=== PATIENT | female | born 2005 | race African-American/Black ===

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

== ENCOUNTER 2024-01-18 05:27 | Emergency (ER) | payer MEDICAID, OTHER ==
[~2024-01-18] VITALS: Ht 165.1 cm; Wt 97.0 kg
[~2024-01-18 05:27] MED LIST: CARB15DR63 EACH EAR; IBUP-2028 MT; OFLO5DRO4 LEFT EAR; TOPUD PO
[2024-01-18 05:50] VITALS: TEMP 97.8; O2SAT 100
[2024-01-18 06:15] LABS: HEMOGLOBIN. 9.6 g/dL (12.0-16.0); MEAN CORPUSCULAR HEMOGLOBIN 18.3 pg (28.0-32.0); MEAN CORPUSCULAR HGB CONC 29.1 g/dL (31.0-37.0); MEAN PLATELET VOLUME 8.1 fl (7.4-10.4); PLATELET 496 x1000/uL (130-400); RED BLOOD CELL COUNT 5.24 mill/uL (4.2-5.4); RED CELL DISTRIBUTION WIDTH 18.9 % (11.6-14.6)
[2024-01-18 06:27] LABS: DIFFERENTIAL COMMENT 1
[2024-01-18 06:42] LABS: ALANINE AMINOTRANSFERASE 9 IU/L (10-49); ALBUMIN 4.7 g/dL (3.2-4.8); ASPARTATE AMINOTRANSFERASE 16 IU/L (<34); BILIRUBIN TOTAL 0.4 mg/dL (0.1-1.0); CARBON DIOXIDE 23 mEq/L (21-32); CHLORIDE 106 mEq/L (98-107); CREATININE 0.8 mg/dL (0.6-1.0); GLUCOSE 114 mg/dL (70-105); POTASSIUM 3.8 mEq/L (3.5-5.1); PROTEIN TOTAL 8.8 g/dL (6.0-8.3); SODIUM 136 mEq/L (136-145); UREA NITROGEN BLOOD 12 mg/dL (9-23)
[2024-01-18 07:03] LABS: CLARITY URINE TURBID (CLEAR); COLOR URINE YELLOW (YELLOW); GLUCOSE URINE NEGATIVE (NEGATIVE); KETONES URINE NEGATIVE (NEGATIVE); LEUKOCYTE ESTERASE URINE 2+ (NEGATIVE); NITRITE URINE NEGATIVE (NEGATIVE); OCCULT BLOOD URINE NEGATIVE (NEGATIVE); PH URINE 8.5 (4.5-8.0); PROTEIN URINE 1+ (NEGATIVE); SPECIFIC GRAVITY URINE 1.023 (1.005-1.030)
[2024-01-18] MEDS ORDERED: MORPHINE SULFATE 4 MG/ML INJ (FOR IV/IM USE) IV STA (07:49)
[2024-01-18] MEDS ORDERED: FAMOTIDINE 20MG/2ML VIAL IV STA (07:49)
[2024-01-18] MEDS ORDERED: ONDANSETRON HCL 4MG/2ML INJ IV STA (07:49)
[2024-01-18] MEDS ORDERED: KETOROLAC 30MG/ML VIAL IV STA (07:49)
[2024-01-18 07:58] LABS: BACTERIA URINE 3+; RBC URINE NONE SEEN /hpf (0-2); SQUAMOUS EPITHELIAL CELL URINE 1+ /lpf (RARE/1+); WBC URINE 15-25 /hpf (0-2)
[2024-01-18] MEDS: SODIUM CHLORIDE 0.9% 1,000 ML IV ONE (08:00)
[2024-01-18 08:04] LABS: HCG SCREEN NEGATIVE
[2024-01-18] MEDS ORDERED: CEFTRIAXONE 1GM/50ML 50 ML IV ONE (08:30)
[2024-01-18] MEDS ORDERED: TOPUD PO (09:28)
[2024-01-18] MEDS ORDERED: NITR100C PO (09:28)
[2024-01-18] MEDS: CEFTRIAXONE 1GM/50ML 50 ML IV NR (09:46)
[2024-01-18] MEDS: ONDANSETRON HCL 4MG/2ML INJ IV NR (09:46)
[2024-01-18] MEDS: FAMOTIDINE 20MG/2ML VIAL IV NR (09:46)
[2024-01-18] MEDS: MORPHINE SULFATE 4 MG/ML INJ (FOR IV/IM USE) IV NR (09:47)
[2024-01-18] MEDS: KETOROLAC 30MG/ML VIAL IV NR (09:47)
[2024-01-18 10:19] LABS: ANISOCYTOSIS 1+; MICROCYTOSIS 2+; PLATELET ESTIMATE INCREASED
[2024-01-18 10:20] LABS: HYPOCHROMASIA 2+
[2024-01-18 11:04] VITALS: BP 109/73; PULSE 62; RESP 20
== END 2024-01-18 11:05 | disposition home or self-care (01) ==
LOC: ER 05:27
DX: R10.9 Unspecified abdominal pain (principal); N39.0 Urinary tract infection, site not specified; D64.9 Anemia, unspecified; Z91.013 Allergy to seafood
CPT/HCPCS: 80053; 81003; 81025; 84703; 83690; 85025; 87086; 87186; 87077; 36415; 76830; 76856; 96361; 96365; 96375; 99285; J0696; J3490; J2405; J2270; J7030; Z7610 ×3

== ENCOUNTER 2024-03-21 15:14 | Emergency (ER) | payer MEDICAID, OTHER ==
[~2024-03-21] VITALS: Ht 165.1 cm; Wt 98.9 kg
[~2024-03-21 15:14] MED LIST changes: +NITR100C PO
[2024-03-21 15:25] VITALS: O2SAT 99
[2024-03-21] MEDS ORDERED: DEXAMETHASONE 0.5MG/5ML ORAL SYR PO ONE (16:45)
[2024-03-21] MEDS ORDERED: AMOX-494 MT (16:46)
[2024-03-21] MEDS ORDERED: IBUP-2028 MT (16:47)
[2024-03-21] MEDS ORDERED: PECT2.8L4 MM (16:51)
[2024-03-21] MEDS: IBUPROFEN 600MG TABLET PO NR (16:54)
[2024-03-21] MEDS ORDERED: IBUPROFEN 600MG TABLET PO ONE (17:00)
[2024-03-21] MEDS: DEXAMETHASONE 4MG TABLET PO NR (17:04)
[2024-03-21 17:07] VITALS: BP 129/69; PULSE 135; RESP 16; TEMP 98.9
== END 2024-03-21 17:10 | disposition home or self-care (01) ==
LOC: ER 15:14
DX: J02.9 Acute pharyngitis, unspecified (principal); D64.9 Anemia, unspecified
CPT/HCPCS: 99283; J8540

== ENCOUNTER 2025-08-09 17:11 | Emergency (ER) | payer OTHER ==
[~2025-08-09] VITALS: Ht 167.6 cm; Wt 113.0 kg
[~2025-08-09 17:11] MED LIST changes: +AMOX-494 MT; +PECT2.8L4 MM
[2025-08-09 17:13] VITALS: O2SAT 99
[2025-08-09] MEDS: ONDANSETRON HCL 4MG/2ML INJ IV ONE (17:57)
[2025-08-09] MEDS: MORPHINE SULFATE 4 MG/ML INJ (FOR IV/IM USE) IV ONE (17:57)
[2025-08-09 18:08] LABS: BASOPHILS % 0.3 % (0.0-2.0); EOSINOPHILS % 6.8 % (0.0-5.0); HEMATOCRIT. 33.7 % (36.0-48.0); HEMOGLOBIN. 9.7 g/dL (12.0-16.0); LYMPHOCYTES % 35.4 % (20.0-50.0); MEAN PLATELET VOLUME 8.2 fl (7.4-10.4); MONOCYTES % 12.4 % (2.0-8.0); NEUTROPHILS % 45.1 % (40.0-76.0); PLATELET 373 x1000/uL (130-400); RED BLOOD CELL COUNT 5.21 mill/uL (4.2-5.4); RED CELL DISTRIBUTION WIDTH 18.9 % (11.6-14.6)
[2025-08-09 18:10] LABS: ADD RBC MORPHOLOGY YES
[2025-08-09 18:25] LABS: CREATININE 0.9 mg/dL (0.6-1.0); UREA NITROGEN BLOOD 9 mg/dL (9-23)
[2025-08-09 18:27] LABS: ASPARTATE AMINOTRANSFERASE 18 IU/L (<34); BILIRUBIN DIRECT < 0.1 mg/dL (<=3.0); BILIRUBIN TOTAL 0.3 mg/dL (0.1-1.0); PROTEIN TOTAL 7.3 g/dL (6.0-8.3)
[2025-08-09 18:28] LABS: INR 1.0
[2025-08-09 18:34] LABS: B-HCG QUANTITATIVE < 1 mIU/mL (<6)
[2025-08-09 18:43] LABS: PLATELET ESTIMATE NORMAL
[2025-08-09] MEDS: SODIUM CHLORIDE 0.9% 1,000 ML IV ONE (19:04)
[2025-08-09 21:44] VITALS: BP 126/67; PULSE 52; RESP 15; TEMP 37.2; O2SAT 99
== END 2025-08-09 22:12 | disposition home or self-care (01) ==
LOC: ER 17:11
DX: N93.9 Abnormal uterine and vaginal bleeding, unspecified (principal); R10.9 Unspecified abdominal pain; R10.20 Pelvic and perineal pain unspecified side; Z98.891 History of uterine scar from previous surgery
CPT/HCPCS: 99285; 74177; 76700; 96374; 76830; 96361; 96375; 80076; 80048; 84702; 83690; 85025; 85610; 85730; 86850; 86900; 86901; 36415; 76856; J2405; J2270; J7030